=== PATIENT | male | born 1990 | race African-American/Black ===

== ENCOUNTER 2017-05-20 11:52 | Emergency (ER) | payer MEDICAID ==
[~2017-05-20] VITALS: Ht 182.9 cm; Wt 113.4 kg
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
[2017-05-20] MEDS ORDERED: HYDROCODONE/APAP 10/325MG 1 EA TABLET PO ONE (12:30)
[2017-05-20] MEDS ORDERED: HYDROCODONE/APAP 10/325MG 1 EA TABLET ONE (12:30)
--- NOTE | 2017-05-20 12:56 | NUR ---
PT TAKEN TO CT
--- NOTE | 2017-05-20 14:05 | NUR ---
Patient discharged to home in stable condition. Written and verbal after care instructions given. Patient verbalizes understanding of instruction.
[2017-05-20 14:17] VITALS: BP 134/78
== END 2017-05-20 14:18 | disposition home or self-care (01) ==
LOC: ER 11:55
DX: S70.01XA Contusion of right hip, initial encounter (principal); S09.8XXA Other specified injuries of head, initial encounter; M54.5 Low back pain; V49.19XA Passenger injured in collision with other motor vehicles in nontraffic accident, initial encounter; Y93.89 Activity, other specified; Y92.413 State road as the place of occurrence of the external cause; Y99.8 Other external cause status
CPT/HCPCS: 70450-TC; A4606; Z7610